=== PATIENT | female | born 1955 | race African-American/Black ===

== ENCOUNTER 2019-01-21 11:29 | Inpatient (IN) | payer MEDICARE, MEDICAID ==
[~2019-01-21] VITALS: Ht 175.3 cm; Wt 82.6 kg
[~2019-01-21 11:29] MED LIST: ASMANEX; FORADIL PO; MONT10TA21 PO; ZOLOFT PO
[2019-01-21] MEDS ORDERED: ASPIRIN 81MG TABLET PO ONE (12:00)
[2019-01-21 12:12] LABS: BASOPHILS % 0.6 % (0.0-2.0); EOSINOPHILS % 0.5 % (0.0-5.0); HEMATOCRIT. 39.1 % (36.0-48.0); HEMOGLOBIN. 13.4 g/dL (12.0-16.0); MEAN CORPUSCULAR HEMOGLOBIN 30.3 pg (28.0-32.0); MEAN CORPUSCULAR VOLUME 88.5 fL (81.0-99.0); MEAN PLATELET VOLUME 7.2 fl (7.4-10.4); MONOCYTES % 10.4 % (2.0-8.0); NEUTROPHILS % 53.5 % (40.0-76.0); PLATELET 345 x1000/uL (130-400); RED BLOOD CELL COUNT 4.42 mill/uL (4.2-5.4); RED CELL DISTRIBUTION WIDTH 13.9 % (11.6-14.6)
[2019-01-21 12:16] LABS: CHLORIDE 104 mEq/L (98-107)
[2019-01-21] MEDS ORDERED: LORAZEPAM 0.5MG TABLET PO PRN (15:45)
[2019-01-21] MEDS ORDERED: ZOLPIDEM TARTRATE 5MG TABLET PO PRN (15:45)
[2019-01-21] MEDS ORDERED: MAGNESIUM/ALUMINUM HYDROXIDE/SIMETHICONE 30ML UDC PO PRN (15:45)
[2019-01-21] MEDS ORDERED: NITROGLYCERIN 0.4MG TABLET SL SL PRN (15:45)
[2019-01-21] MEDS ORDERED: GUAIFENESIN 200MG/10ML SUGAR FREE UDC PO PRN (15:45)
[2019-01-21] MEDS ORDERED: ACETAMINOPHEN 325MG TABLET PO PRN (15:45)
[2019-01-21] MEDS ORDERED: CLONIDINE 0.1MG TABLET PO PRN (15:45)
[2019-01-21] MEDS ORDERED: DOCUSATE SODIUM 100MG CAPSULE PO PRN (15:45)
[2019-01-21] MEDS ORDERED: IPRATROPIUM/ALBUTEROL 0.5-3(2.5)MG/3ML NEB INH PRN (15:45)
[2019-01-21] MEDS ORDERED: ONDANSETRON HCL 4MG/2ML INJ IV PRN (15:45)
[2019-01-21 17:00] VITALS: BP 152/75
[2019-01-21 17:05] LABS: ETHANOL BLOOD < 10 mg/dL
[2019-01-21 17:07] LABS: LDL CHOLESTEROL 140 mg/dL (5-100)
[2019-01-21 17:09] LABS: HDL CHOLESTEROL 49 mg/dL (40-59)
[2019-01-21] MEDS ORDERED: POTASSIUM CHLORIDE 20MEQ/PACKET PO NR (18:00)
[2019-01-21] MEDS: ENOXAPARIN 40MG/0.4ML SYR SUBCUT SCH (18:13)
[2019-01-21 18:38] LABS: *AMPHETAMINES SCREEN URINE NEGATIVE (NEGATIVE)
[2019-01-21 18:39] LABS: *BARBITURATES SCREEN URINE NEGATIVE (NEGATIVE); *BENZODIAZEPINES SCREEN URINE NEGATIVE (NEGATIVE); *COCAINE SCREEN URINE NEGATIVE (NEGATIVE); METHADONE URINE SCREEN NEGATIVE (NEGATIVE); OPIATES URINE SCREEN NEGATIVE (NEGATIVE); PHENCYCLIDINE URINE SCREEN NEGATIVE (NEGATIVE)
[2019-01-21 18:40] LABS: CANNABINOID URINE SCREEN NEGATIVE (NEGATIVE)
[2019-01-21] MEDS: ATORVASTATIN CALCIUM 10MG TABLET PO SCH (20:45)
[2019-01-21] MEDS: FAMOTIDINE 20MG TABLET PO SCH (20:46)
[2019-01-21 20:48] VITALS: BP 128/71
[2019-01-22 00:36] VITALS: BP 105/60
[2019-01-22 00:53] LABS: CREATINE KINASE 81 IU/L (26-192)
[2019-01-22 00:54] LABS: CREATINE KINASE MB FRACTION < 1.0 ng/mL (0.5-3.6)
[2019-01-22 04:00] VITALS: BP 109/65
[2019-01-22] MEDS: TRAMADOL 50MG TABLET PO PRN ×3 (05:18→19:09)
[2019-01-22 07:36] LABS: CREATINE KINASE 79 IU/L (26-192); CREATINE KINASE MB FRACTION < 1.0 ng/mL (0.5-3.6)
[2019-01-22 08:00] VITALS: BP 136/72
[2019-01-22] MEDS: FAMOTIDINE 20MG TABLET PO SCH ×2 (09:06→20:56)
[2019-01-22] MEDS: ASPIRIN 325MG EC TABLET PO SCH (09:07)
[2019-01-22 12:00] VITALS: BP 129/70
[2019-01-22 16:00] VITALS: BP 112/62
[2019-01-22] MEDS: ENOXAPARIN 40MG/0.4ML SYR SUBCUT SCH (19:57)
[2019-01-22 20:00] VITALS: BP 141/79
[2019-01-22] MEDS: ATORVASTATIN CALCIUM 10MG TABLET PO SCH (20:56)
[2019-01-23] VITALS: BP 109/66
[2019-01-23 04:00] VITALS: BP 100/68
[2019-01-23] MEDS: TRAMADOL 50MG TABLET PO PRN (05:59)
[2019-01-23 07:56] VITALS: BP 126/73
[2019-01-23] MEDS: ASPIRIN 325MG EC TABLET PO SCH (08:07)
[2019-01-23] MEDS: FAMOTIDINE 20MG TABLET PO SCH (08:07)
[2019-01-23 11:43] VITALS: BP 126/73
[2019-01-23 12:08] VITALS: BP 135/69
== END 2019-01-23 12:46 | disposition home or self-care (01) | DRG 203 ==
LOC: ER 11:29 → 6WST 15:32 → EDBEDREQ 15:34 → ENRESERV 15:41 → SUPCPDRO 15:43 → CANBEDREQ 17:26
PROVIDERS: ADMIT Internal Medicine; ATTEND Internal Medicine
DX: M94.0 Chondrocostal junction syndrome [Tietze] (principal); E78.5 Hyperlipidemia, unspecified; E87.6 Hypokalemia; F17.200 Nicotine dependence, unspecified, uncomplicated; R07.89 Other chest pain; F32.9 Major depressive disorder, single episode, unspecified; I10 Essential (primary) hypertension; J45.909 Unspecified asthma, uncomplicated; M06.9 Rheumatoid arthritis, unspecified; Z82.49 Family history of ischemic heart disease and other diseases of the circulatory system
CPT/HCPCS: 36415; 71045; 80061; 80305; 80320; 82550; 82553; 83036; 83880; 84484; 93005; 93306; 93970; 96374; 97161; 97166; 99285; J1650; G0480

== ENCOUNTER 2019-03-28 13:12 | Emergency (ER) | payer OTHER, MEDICAID ==
[~2019-03-28] VITALS: Ht 172.7 cm; Wt 88.0 kg
[2019-03-28 13:32] VITALS: BP 151/88
[2019-03-28] MEDS ORDERED: KETOROLAC 60MG/2ML VIAL IM ONE (14:45)
== END 2019-03-28 15:46 | disposition home or self-care (01) ==
LOC: ER 14:58
DX: M16.11 Unilateral primary osteoarthritis, right hip (principal); F41.9 Anxiety disorder, unspecified; J45.909 Unspecified asthma, uncomplicated; F32.9 Major depressive disorder, single episode, unspecified; M19.90 Unspecified osteoarthritis, unspecified site; Z79.899 Other long term (current) drug therapy
CPT/HCPCS: 73502; 96372; 99283; J1885